=== PATIENT | male | born 1970 | race Caucasian/White ===

== ENCOUNTER 2025-03-29 02:01 | Observation (INO) ==
[2025-03-29 03:53] VITALS: BMI 29.5
[2025-03-29] MEDS: D5 1/2 NS 1,000 ML 1,000 ML IV SCH (04:05)
[2025-03-29] MEDS: GLUCAGEN SC ONE (04:32)
[2025-03-29] MEDS: PROTONIX INJ 40 MG VIAL IVP SCH (08:53)
[2025-03-29] MEDS: NS 1,000 ML IV 1,000 ML ONE (12:48)
[2025-03-29] MEDS: NS 1,000 ML IV 100 ML IV PRN (12:58)
[2025-03-29] MEDS: DIPRIVAN VIAL 100 ML IVP PRN (13:03)
[2025-03-29] MEDS: XYLOCAINE 2 % (PLAIN) IVP PRN (13:03)
[2025-03-29] MEDS ORDERED: PROTONIX TAB 40 MG PO SCH ×2 (14:00→21:00)
[2025-03-29 14:16] VITALS: BP 138/84; PULSE 86; RESP 16; TEMP 97.9; O2SAT 94
== END 2025-03-29 15:00 | disposition home or self-care (01) ==
LOC: MED/SURG
PROVIDERS: ADMIT Surgery; ATTEND Surgery
DX: R13.11 Dysphagia, oral phase; T18.128A Food in esophagus causing other injury, initial encounter; I10 Essential (primary) hypertension; W44.F3XA Food entering into or through a natural orifice, initial encounter; Z79.899 Other long term (current) drug therapy; Y92.9 Unspecified place or not applicable; K21.00 Gastro-esophageal reflux disease with esophagitis, without bleeding; E11.65 Type 2 diabetes mellitus with hyperglycemia; K22.2 Esophageal obstruction